=== PATIENT | female | born 1985 | race Caucasian/White ===

== ENCOUNTER 2020-10-19 11:09 | Emergency (ER) | payer BC, OTHER ==
[~2020-10-19 11:09] MED LIST: CITRATE OF MAG296 ML PO; MIRALAX17 GM PO
[2020-10-19 12:28] LABS: HEMOGLOBIN 15.6 gm/dl (12.3-15.3); RED BLOOD COUNT 5.01 M/UL (4.00-5.10)
[2020-10-19 12:51] LABS: BUN/CREATININE RATIO 19 (0-10)
[2020-10-19] MEDS ORDERED: ONDANSETRON ODT4 MG SL (17:16)
[2020-10-19] MEDS ORDERED: BENTYL 20MG TAB20 MG PO (17:16)
[2020-10-19] MEDS ORDERED: OMEPRAZOLE20 M1 PO (17:16)
== END 2020-10-19 17:27 | disposition home or self-care (01) ==
LOC: ER1 11:09
PROVIDERS: Physician Assistant
DX: K52.9 Noninfective gastroenteritis and colitis, unspecified (principal); Z90.49 Acquired absence of other specified parts of digestive tract
CPT/HCPCS: 80053; 81001; 83690; 84703; 85025; 96374; 96375; 99284; C9113; J1200; J1885; J2405; J2765; J7030; Q9967

== ENCOUNTER → 2020-10-31 | Outpatient (CLI) | payer BC, OTHER ==
[~2020-10-31] MED LIST changes: +BENTYL 20MG TAB20 MG PO; +OMEPRAZOLE20 M1 PO; +ONDANSETRON ODT4 MG SL
[2020-11-02 10:13] LABS: RHEUMATOID ARTHRITIS FACTOR <10.0 IU/mL (0.0-13.9)
== END ==
LOC: LAB 16:06
DX: R10.84 Generalized abdominal pain (principal); R53.83 Other fatigue; R19.7 Diarrhea, unspecified; R21 Rash and other nonspecific skin eruption
CPT/HCPCS: 36415; 85652; 86038; 86140; 86431